=== PATIENT | female | born 1940 | race Caucasian/White ===

== ENCOUNTER 2024-01-05 13:58 | Inpatient (IN) | payer MEDICARE ==
[~2024-01-05] VITALS: Ht 175.3 cm; Wt 98.6 kg
[2024-01-05 15:09] LABS: BASO % 0.2 % (0.0-1.0); EOS # 0.4 10^3/uL (0.0-0.5); EOS % 4.4 % (0.0-3.0); HEMATOCRIT 42.6 % (36.0-47.0); HEMOGLOBIN 13.9 g/dl (12.0-15.5); LYMPH # 1.5 10^3/uL (1.5-5.0); LYMPH % 16.3 % (24.0-44.0); MEAN CORPUSCULAR HEMOGLOBIN 29.8 pg (27.0-33.0); MEAN CORPUSCULAR HGB CONC 32.6 g/dl (32.0-36.5); MEAN CORPUSCULAR VOLUME 91.2 fl (80.0-96.0); MONO # 0.8 10^3/uL (0.0-0.8); MONO % 8.6 % (2.0-8.0); NEUTROPHILS # 6.4 10^3/uL (1.5-8.5); NEUTROPHILS % 70.3 % (36.0-66.0); PLATELET COUNT, AUTOMATED 218 10^3/uL (150-450); RED BLOOD COUNT 4.67 10^6/uL (4.00-5.40); WHITE BLOOD COUNT 9.1 10^3/uL (4.0-10.0)
[2024-01-05 15:31] LABS: BLOOD UREA NITROGEN 17 MG/DL (9-23); CALCIUM LEVEL 10.4 MG/DL (8.3-10.6); CARBON DIOXIDE LEVEL 30 MMOL/L (20-31); CHLORIDE LEVEL 105 MMOL/L (98-107); CREATININE FOR GFR 0.58 MG/DL (0.55-1.30); GLOMERULAR FILTRATION RATE > 60.0 (>32); GLUCOSE, FASTING 97 MG/DL (74-106); MAGNESIUM LEVEL 1.7 MG/DL (1.8-2.4); POTASSIUM SERUM 3.6 MMOL/L (3.5-5.1); SODIUM LEVEL 140 MMOL/L (136-145)
[2024-01-05 15:34] LABS: FREE T4 1.82 NG/DL (0.89-1.76); THYROID STIMULATING HORMONE 1.323 uIU/ML (0.55-4.78)
[2024-01-05] MEDS ORDERED: ISOVUE-370 76% 100ML VIAL As Ordered ONE (19:14)
[2024-01-05] MEDS: ACETAMINOPHEN 325 MG TAB PO ONE (19:53)
[2024-01-05] MEDS: LATANOPROST 0.005% OPHTH SOLN 2.5 ML OU SCH (21:00)
[2024-01-06] MEDS ORDERED: CHLO125TA PO (01:13)
[2024-01-06] MEDS ORDERED: VITA200010 PO (01:13)
[2024-01-06] MEDS ORDERED: LEVO75TA4 PO ×2 (01:13)
[2024-01-06] MEDS ORDERED: VITA500T17 PO (01:13)
[2024-01-06] MEDS ORDERED: XALA0.007 OU (01:13)
[2024-01-06] MEDS ORDERED: ACET650T61 PO (01:13)
[2024-01-06] MEDS ORDERED: AMLO1TAB25 PO (01:13)
[2024-01-06] MEDS ORDERED: ATOR1TAB21 PO (01:13)
[2024-01-06] MEDS ORDERED: HOME MED LIST COMPLETE! XX SCH (01:15)
[2024-01-06 03:24] LABS: ALBUMIN 3.7 G/DL (3.2-5.2); ALKALINE PHOSPHATASE 102 U/L (46-116); ALT/SGPT 19 U/L (7.0-40); AST/SGOT 24 U/L (<34); BILIRUBIN,DIRECT 0.3 MG/DL (<0.4); BILIRUBIN,TOTAL 1.2 MG/DL (0.3-1.2); TOTAL PROTEIN 7.1 G/DL (5.7-8.2)
[2024-01-06 03:45] LABS: CPK CREATINE PHOSPHOKINASE 95 U/L (34-145)
[2024-01-06] MEDS: ACETAMINOPHEN 325 MG TAB PO PRN (04:23)
[2024-01-06] MEDS: LEVOTHYROXINE 75MCG TABLET (0.075MG) PO SCH (06:00)
[2024-01-06 06:44] LABS: CORTISOL AM 17.2 UG/DL (4.3-22.4)
[2024-01-06 06:48] LABS: FOLATE 12.09 NG/ML (>5.4)
[2024-01-06 06:49] LABS: VITAMIN B12 LEVEL 845 PG/ML (211-911)
[2024-01-06 07:20] LABS: BLOOD UREA NITROGEN 12 MG/DL (9-23); CARBON DIOXIDE LEVEL 30 MMOL/L (20-31); CHLORIDE LEVEL 106 MMOL/L (98-107); CREATININE FOR GFR 0.56 MG/DL (0.55-1.30); GLOMERULAR FILTRATION RATE > 60.0 (>32); GLUCOSE, FASTING 95 MG/DL (74-106); POTASSIUM SERUM 3.2 MMOL/L (3.5-5.1); SODIUM LEVEL 141 MMOL/L (136-145)
[2024-01-06 07:25] LABS: HEMATOCRIT 41.8 % (36.0-47.0); HEMOGLOBIN 13.7 g/dl (12.0-15.5); MEAN CORPUSCULAR HEMOGLOBIN 30.6 pg (27.0-33.0); MEAN CORPUSCULAR HGB CONC 32.8 g/dl (32.0-36.5); MEAN CORPUSCULAR VOLUME 93.3 fl (80.0-96.0); PLATELET COUNT, AUTOMATED 188 10^3/uL (150-450); RED BLOOD COUNT 4.48 10^6/uL (4.00-5.40); WHITE BLOOD COUNT 9.4 10^3/uL (4.0-10.0)
[2024-01-06 08:26] VITALS: BP 158/76
[2024-01-06] MEDS ORDERED: HEPARIN SOD (PORCINE) 5000UNITS/ML 1ML VIAL/SYRINGE SC SCH (09:00)
[2024-01-06] MEDS: POTASSIUM CHLORIDE 10MEQ SR TABLET PO ONE (09:11)
[2024-01-06 10:00] VITALS: TEMP 97.4; O2SAT 95
[2024-01-06 10:16] VITALS: BP 137/63
[2024-01-10] MEDS ORDERED: LEVOTHYROXINE 37.5MCG PER 1/2TAB (0.0375MG) PO SCH (06:00)
== END 2024-01-06 10:14 | disposition short-term general hospital (02) | DRG 65 ==
LOC: EDBD 13:58 → M ED 13:58 → M ED INP 01-06 00:37
PROVIDERS: ADMIT Student in an Organized Health Care Education/Training Program; ATTEND Student in an Organized Health Care Education/Training Program
DX: I61.1 Nontraumatic intracerebral hemorrhage in hemisphere, cortical (principal); G81.94 Hemiplegia, unspecified affecting left nondominant side; I10 Essential (primary) hypertension; M35.00 Sjogren syndrome, unspecified; E03.9 Hypothyroidism, unspecified; E87.6 Hypokalemia; E78.5 Hyperlipidemia, unspecified; M19.011 Primary osteoarthritis, right shoulder; E66.9 Obesity, unspecified; R32 Unspecified urinary incontinence; R91.8 Other nonspecific abnormal finding of lung field; E83.42 Hypomagnesemia; Z79.890 Hormone replacement therapy; Z79.899 Other long term (current) drug therapy